=== PATIENT | female | born 1965 | race Caucasian/White ===

== ENCOUNTER 2016-04-07 07:25 | Emergency (ER) | payer OTHER ==
[2016-04-07] MEDS ORDERED: KETOROLAC 60 MG/2 ML VIAL IM STA (07:45)
[2016-04-07] MEDS ORDERED: DEXAMETHASONE 10 MG/ML VIAL PO STA (07:46)
[2016-04-07] MEDS ORDERED: KETOROLAC 60 MG/2 ML VIAL ONE (07:51)
[2016-04-07] MEDS ORDERED: CHERRY SYRUP 10 ML UDC PO ONE (07:51)
[2016-04-07] MEDS ORDERED: DEXAMETHASONE 10 MG/ML VIAL ONE (07:51)
[2016-04-07] MEDS ORDERED: PROMETHAZINE 25 MG/1 ML VIAL IM STA (08:20)
[2016-04-07] MEDS ORDERED: PROMETHAZINE 25 MG/1 ML VIAL ONE (08:22)
[2016-04-07] MEDS ORDERED: ONDANSETRON 4 MG/2 ML VIAL IVP STA (08:59)
[2016-04-07] MEDS ORDERED: SODIUM CHLORIDE 0.9% 1,000 ML IV ONE (08:59)
[2016-04-07] MEDS ORDERED: ONDANSETRON 4 MG/2 ML VIAL ONE (09:01)
[2016-04-07] MEDS ORDERED: HYDROmorphone 1 MG/ML SYRINGE IVP STA (09:44)
[2016-04-07] MEDS ORDERED: HYDROmorphone 1 MG/ML SYRINGE ONE (09:48)
== END 2016-04-07 10:29 | disposition home or self-care (01) ==
DX: S39.012A Strain of muscle, fascia and tendon of lower back, initial encounter (principal); X58.XXXA Exposure to other specified factors, initial encounter; M54.5 Low back pain; G89.29 Other chronic pain; R11.0 Nausea; R39.15 Urgency of urination
CPT/HCPCS: 81003; 96372; 96374; 96375; 99284; A9270

== ENCOUNTER 2016-08-26 10:49 | Emergency (ER) | payer OTHER ==
--- NOTE | 2016-08-26 12:51 | ED Physician Documentation ---
History of Present Illness - Stated complaint Stated Complaint: SWEATS/CHILLS/ZAYAS - Chief complaint Chief Complaint: General - History obtained from History obtained from: Patient, Family () - History of Present Illness Pain level max: 8 Pain level now: 8 Improved by: claritin Worsened by: nothing - Additonal information Additional information: Patient complains of rash to neck and upper chest for 3 days. +rhinorrhea. + cough. No fever, but has felt chilled. States felt mild dyspneic today. Took albuterol without relief. Has now developed her typical migraine headache as well. Took claritin and helped the rash and dyspnea. Still has a headache. Review of Systems Constitutional: denies: Fever Nose: reports: Rhinorrhea / runny nose, Congestion Cardiac: denies: Chest pain / pressure Respiratory: reports: Dyspnea (mild), Cough (dry) GI: denies: Abdominal Pain, Nausea, Vomiting, Diarrhea Skin: denies: Rash Musculoskeletal: denies: Neck pain, Back pain Neurologic: reports: Headache. 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, Oophrectomy HEENT: Tonsil/Adenoidectomy - Present Medications Home Medications: Ambulatory Orders Medication Instructions Recorded Confirmed Methocarbamol 1,000 mg PO DAILY 04/07/16 08/26/16 Lansoprazole [Prevacid] 20 mg PO BID 08/26/16 08/26/16 Loratadine [Claritin] 10 mg PO DAILY 08/26/16 08/26/16 Prednisone 20 mg PO DAILY #5 tablet 08/26/16 - Allergies Allergies/Adverse Reactions: Allergies Allergy/AdvReac Type Severity Reaction Status Date / Time cephalexin monohydrate * AdvReac Unknown Verified 04/07/16 07:34 [From Keflex] morphine AdvReac Unknown Verified 04/07/16 07:34 NSAIDS (Non-Steroidal AdvReac Unknown Verified 04/07/16 07:34 Anti-Inflamma - Social History Does the pt smoke?: No Smoking Status: Never smoker Does the pt drink ETOH?: Yes Does the pt have substance abuse?: Yes - Immunizations Immunizations are current?: Yes PD ED PE NORMAL - Vitals Vital signs reviewed: Yes - General General: Alert and oriented X 3, No acute distress, Well developed/nourished - HEENT HEENT: PERRL, Ears normal, Moist mucous membranes, Pharynx benign - Neck Neck: Supple, no meningeal sign - Cardiac Cardiac: RRR, Strong equal pulses - Respiratory Respiratory: No respiratory distress, Clear bilaterally - Abdomen Abdomen: Soft, Non tender, Non distended - Derm Derm: Warm and dry, No rash - Extremities Extremities: No edema - Neuro Neuro: Alert and oriented X 3 - Psych Psych: Normal mood, Normal affect Results - Vitals Vitals: Vital Signs - 24 hr 08/26/16 08/26/16 08/26/16 10:51 12:46 14:09 Temperature 36.4 C L Heart Rate 99 78 65 Respiratory 18 16 16 Rate Blood Pressure 153/97 H 131/73 H 123/58 L O2 Saturation 99 98 99 08/26/16 15:06 Temperature Heart Rate 69 Respiratory 16 Rate Blood Pressure 107/53 L O2 Saturation 99 Oxygen O2 Source Room air PD MEDICAL DECISION MAKING - ED course Complexity details: reviewed results, re-evaluated patient, considered differential, d/w patient, d/w family ED course: Patient is a 51-year-old female who presents to the emergency department with what appears to be a viral upper respiratory infection as well as her typical migraine headache. She had nausea and vomiting following the toradol. This resolved with Zofran. Also received Phenergan and Benadryl. Then received Imitrex. Headache improved down to a 4 out of 10 and she would like to go home at this time. Her rash resolved as well. She does have mild inflammation in her lungs and will prescribe a short steroid course for home. Patient is very well-appearing, nontoxic. Afebrile. No evidence of intracranial hemorrhage, subarachnoid hemorrhage. Patient counseled regarding signs and symptoms for which I believe and urgent re-evaluation would be necessary. Patient with good understanding of and agreement to plan and is comfortable going home at this time This document was made in part using voice recognition software. While efforts are made to proofread this document, sound alike and grammatical errors may occur. Departure - Departure Disposition: 01 Home, Self Care Clinical Impression: Viral URI Headache Qualifiers: Headache type: unspecified Headache chronicity pattern: unspecified pattern Intractability: not intractable Qualified Code(s): R51 - Headache Condition: Good Instructions: ED Viral Syndrome, ED Headache Migraine Follow-Up: Ad Ford DO [Primary Care Provider] - Within 1 week Prescriptions: Prednisone 20 mg PO DAILY #5 tablet Comments: Return if you worsen. The steroids will help your breathing, rash and headache. Discharge Date/Time: 08/26/16 15:33
[2016-08-26] MEDS ORDERED: KETOROLAC 60 MG/2 ML VIAL IM STA (12:53)
[2016-08-26] MEDS ORDERED: PROMETHAZINE 25 MG/1 ML VIAL IM STA (12:53)
[2016-08-26] MEDS ORDERED: diphenhydrAMINE INJ 50 MG/ML VIAL IM STA (12:53)
[2016-08-26] MEDS ORDERED: KETOROLAC 60 MG/2 ML VIAL ONE (12:56)
[2016-08-26] MEDS ORDERED: diphenhydrAMINE INJ 50 MG/ML VIAL ONE (12:56)
[2016-08-26] MEDS ORDERED: PROMETHAZINE 25 MG/1 ML VIAL ONE (12:56)
[2016-08-26] MEDS ORDERED: ONDANSETRON ODT 4 MG TABLET TL STA (13:54)
[2016-08-26] MEDS ORDERED: ONDANSETRON ODT 4 MG TABLET ONE (13:56)
[2016-08-26] MEDS ORDERED: SUMAtriptan 6 MG/0.5 ML VIAL SUBQ STA (14:14)
[2016-08-26] MEDS ORDERED: SUMAtriptan 6 MG/0.5 ML VIAL SUBQ ONE (14:16)
[2016-08-26 15:06] VITALS: BP 107/53
== END 2016-08-26 15:33 | disposition home or self-care (01) ==
LOC: ED 10:49
DX: J06.9 Acute upper respiratory infection, unspecified (principal); B97.89 Other viral agents as the cause of diseases classified elsewhere; J45.909 Unspecified asthma, uncomplicated; K21.9 Gastro-esophageal reflux disease without esophagitis
CPT/HCPCS: 96372; 99283; 99284; Q0162

== ENCOUNTER 2017-02-19 09:10 | Outpatient (CLI) | payer OTHER ==
--- NOTE | 2017-02-20 22:25 | MRI Report ---
EXAM: RIGHT KNEE MRI WITHOUT CONTRAST EXAM DATE: 02/19/2017 09:58 AM. CLINICAL HISTORY: Pain in right knee. COMPARISON: None. TECHNIQUE: Multiplanar, multisequence T1-weighted and fluid-sensitive sequences of the knee without c ontrast. Other: None. FINDINGS: Cruciate ligaments: The anterior and posterior cruciate ligaments appear intact. Medial meniscus: Intact. No tear is identified. Lateral meniscus: Intact. No tear is identified. Collateral ligaments: The medial and fibular collateral ligaments appear intact. Trace fluid within t he MCL bursa. Bones and articular surfaces: Prominent near full-thickness cartilage fissure or linear defect at the lateral tibial plateau measuring approximately 0.3 x 1.5 cm. Moderate to severe cartilage thinning, fissuring and irregularity in the patellofemoral compartment with patchy foci of subchondral edema an d subchondral cyst formation throughout the patella and at the medial trochlea. Minimal joint effusio n. Extensor mechanism: The patellar tendon and quadriceps insertion appear intact. IMPRESSION: 1. Moderate patellofemoral osteoarthritis. 2. Near full-thickness cartilage fissure or linear defect at the lateral tibial plateau measuring 3 x 15 mm. [facility] MUSCULOSKELETAL RADIOLOGY SECTION Referring Provider Line: [phone] SITE ID: [id number]
== END 2017-02-19 09:11 | disposition home or self-care (01) ==
LOC: DI 09:10
DX: M17.11 Unilateral primary osteoarthritis, right knee (principal); M23.91 Unspecified internal derangement of right knee

== ENCOUNTER 2018-06-26 21:51 | Emergency (ER) | payer OTHER ==
--- NOTE | 2018-06-26 22:42 | XRAY Report ---
Reason: chest pain Procedure Date: 06/26/2018 Accession Number: [id number] / [id number] Procedure: XR - Chest 2 View X-Ray CPT Code: 53969 FULL RESULT: EXAM: CHEST RADIOGRAPHY EXAM DATE: 06/26/2018 10:13 PM. CLINICAL HISTORY: Chest pain. COMPARISON: None. TECHNIQUE: 2 views. FINDINGS: Lungs/Pleura: No focal opacities evident. No pleural effusion. No pneumothorax. Normal volumes. Mediastinum: Heart and mediastinal contours are unremarkable. Other: None. IMPRESSION: Normal 2-view chest radiography. [facility]
[2018-06-26 23:04] LABS: BILIRUBIN,URINE NEGATIVE (NEGATIVE); GLUCOSE, URINE (UA) NEGATIVE (NEGATIVE); KETONES,URINE (UA) NEGATIVE (NEGATIVE); LEUKOCYTE ESTERASE, URINE TRACE (NEGATIVE); NITRITE,URINE NEGATIVE (NEGATIVE); OCCULT BLOOD,URINE TRACE-INTA (NEGATIVE); PROTEIN,URINE NEGATIVE (NEGATIVE); UROBILINOGEN,URINE 0.2 (NORMAL) E.U./dL (NORMAL)
[2018-06-26 23:05] LABS: CLARITY,URINE CLEAR (CLEAR)
[2018-06-26] MEDS ORDERED: ONDANSETRON ODT 4 MG TABLET TL STA (23:07)
[2018-06-26] MEDS ORDERED: HYDROmorphone 1 MG/ML CARPUJECT IM STA (23:07)
[2018-06-26 23:12] LABS: BACTERIA,URINE None Seen /HPF (None Seen); RBC,URINE 0-5 /HPF (0-5); SQUAMOUS EPITHELIAL CELL,UR MOD Squamous (<= Few)
--- NOTE | 2018-06-26 23:12 | ED Physician Documentation ---
History of Present Illness - Stated complaint Stated Complaint: RAPID HEART RATE/BACK PX - Chief complaint Chief Complaint: Cardiac - History obtained from History obtained from: Patient, Family - History of Present Illness Timing: Other (1 month) Pain level max: 8 Pain level now: 8 Improved by: rest Worsened by: movement - Additonal information Additional information: Patient is a 52-year-old female who has been seen by her doctor 4 times and [facility] x1 in the past month for similar symptoms. She states that she occasionally gets chills and feels her heart race. States that her heart rate was elevated into the 130s at 1 of her doctor's appointments and they started her on metoprolol. She occasionally feels feverish. No nausea or vomiting. Does occasionally have epigastric pain. Tonight she also developed right scapular pain that is worse with movement and better with rest. Denies any trauma. Denies any heavy lifting. No chest pain. No shortness of breath. Review of Systems Ten Systems: 10 systems reviewed and negative Eyes: denies: Photophobia Ears: denies: Ear pain Nose: denies: Rhinorrhea / runny nose, Congestion Cardiac: reports: Palpitations. 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 HEENT: Tonsil/Adenoidectomy - Present Medications Home Medications: Ambulatory Orders Medication Instructions Recorded Confirmed Methocarbamol 1,000 mg PO DAILY 04/07/16 08/26/16 Lansoprazole [Prevacid] 20 mg PO BID 08/26/16 08/26/16 Loratadine [Claritin] 10 mg PO DAILY 08/26/16 08/26/16 predniSONE [Prednisone] 20 mg PO DAILY #5 tablet 08/26/16 diazePAM [Valium] 5 - 10 mg PO TID PRN #15 tablet 06/27/18 - Allergies Allergies/Adverse Reactions: Allergies Allergy/AdvReac Type Severity Reaction Status Date / Time cephalexin monohydrate * AdvReac Unknown Verified 06/26/18 21:56 [From Keflex] morphine AdvReac Unknown Verified 06/26/18 21:56 NSAIDS (Non-Steroidal AdvReac Unknown Verified 06/26/18 21:56 Anti-Inflamma - Social History Does the pt smoke?: No Smoking Status: Never smoker Does the pt drink ETOH?: Yes Does the pt have substance abuse?: Yes - Immunizations Immunizations are current?: Yes PD ED PE NORMAL - Vitals Vital signs reviewed: Yes - General General: Alert and oriented X 3, No acute distress, Well developed/nourished - HEENT HEENT: PERRL, Ears normal, Moist mucous membranes, Pharynx benign - Neck Neck: Supple, no meningeal sign, No bruit - Cardiac Cardiac: RRR, No murmur, Strong equal pulses - Respiratory Respiratory: No respiratory distress, Clear bilaterally - Abdomen Abdomen: Soft, Non tender, Non distended - Derm Derm: Warm and dry, No rash - Extremities Extremities: No edema, No calf tenderness / cord - Neuro Neuro: Alert and oriented X 3, bioprocess engineer 2-12 intact, No motor deficit, No sensory deficit, Normal speech Eye Opening: Spontaneous Motor: Obeys Commands Verbal: Oriented GCS Score: 15 - Psych Psych: Normal mood, Normal affect Results - Vitals Vitals: Vital Signs - 24 hr 06/26/18 06/26/18 06/27/18 21:52 23:30 00:03 Temperature 36.5 C 36.6 C 36.7 C Heart Rate 83 96 88 Respiratory 18 17 16 Rate Blood Pressure 145/94 H 155/93 H 126/87 H O2 Saturation 100 99 95 06/27/18 06/27/18 06/27/18 00:25 01:30 02:03 Temperature 36.5 C Heart Rate 93 83 80 Respiratory 17 17 16 Rate Blood Pressure 137/72 H 115/50 L 121/68 O2 Saturation 97 98 Oxygen O2 Source Room air - EKG (time done) 2158 Rate: Rate (enter#) (70) Rhythm: NSR [place]: Normal Intervals: Normal [place] QRS: Normal Ischemia: Normal ST segments - Labs Labs: Laboratory Tests 06/26/18 06/26/18 06/26/18 22:19 23:35 23:35 WBC 12.3 H RBC 4.44 Hgb 13.3 Hct 40.3 MCV 90.9 MCH 29.9 MCHC 32.9 RDW 14.0 Plt Count 306 MPV 8.8 Neut # (Auto) 7.9 H Lymph # (Auto) 3.2 [place] # (Auto) 1.0 Eos # (Auto) 0.2 Baso # (Auto) 0.1 Absolute Nucleated RBC 0.01 Nucleated RBC % 0.1 D-Dimer Sodium 141 Potassium 4.0 Chloride 105 Carbon Dioxide 25 Anion Gap 11.0 BUN 14 Creatinine 0.7 Estimated GFR (MDRD) 88 L Glucose 111 H Calcium 9.4 Total Bilirubin 0.6 AST 23 ALT 30 Alkaline Phosphatase 89 Troponin I Total Protein 7.2 Albumin 4.3 Globulin 2.9 Albumin/Globulin Ratio 1.5 Lipase 44 Urine Color YELLOW Urine Clarity CLEAR Urine pH 6.0 Ur Specific [place] <=1.005 Urine Protein NEGATIVE Urine Glucose (UA) NEGATIVE Urine Ketones NEGATIVE Urine Occult Blood TRACE-INTA Urine Nitrite NEGATIVE Urine Bilirubin NEGATIVE Urine Urobilinogen 0.2 (NORMAL) Ur Leukocyte Esterase TRACE H Urine RBC 0-5 Urine WBC 0-3 Ur Squamous Epith Cells MOD Squamous H Urine Bacteria None Seen Ur Microscopic Review INDICATED Urine Culture Comments NOT INDICATED 06/26/18 06/26/18 23:35 23:35 WBC RBC Hgb Hct MCV MCH MCHC RDW Plt Count MPV Neut # (Auto) Lymph # (Auto) [place] # (Auto) Eos # (Auto) Baso # (Auto) Absolute Nucleated RBC Nucleated RBC % D-Dimer 190.8 L Sodium Potassium Chloride Carbon Dioxide Anion Gap BUN Creatinine Estimated GFR (MDRD) Glucose Calcium Total Bilirubin AST ALT Alkaline Phosphatase Troponin I < 0.04 Total Protein Albumin Globulin Albumin/Globulin Ratio Lipase Urine Color Urine Clarity Urine pH Ur Specific [place] Urine Protein Urine Glucose (UA) Urine Ketones Urine Occult Blood Urine Nitrite Urine Bilirubin Urine Urobilinogen Ur Leukocyte Esterase Urine RBC Urine WBC Ur Squamous Epith Cells Urine Bacteria Ur Microscopic Review Urine Culture Comments - Rads (name of study) cxr Radiology: Prelim report reviewed, EMP read contemporaneously, See rad report (No acute disease) PD MEDICAL DECISION MAKING - ED course Complexity details: reviewed results, re-evaluated patient, considered differential (No ST elevation OK, no aortic dissection, no PE, no tension pneumothorax, no aortic aneurysm), d/w patient ED course: 52-year-old female presents to the emergency department with multiple symptoms is been ongoing for the past month, tonight she developed right scapular pain. No right upper quadrant tenderness. Worse with movement and palpation. Feels better after valium. Will treat as muscular pain and follow-up with her doctor. No evidence of pulmonary embolus, aortic dissection or aneurysm. Patient counseled regarding signs and symptoms for which I believe and urgent re- evaluation would be necessary. Patient with good understanding of and agreement to plan and is comfortable going home at this time This document was made in part using voice recognition software. While efforts are made to proofread this document, sound alike and grammatical errors may occur. Departure - Departure Disposition: 01 Home, Self Care Clinical Impression: Back pain Qualifiers: Back pain location: thoracic back pain Chronicity: acute Back pain laterality: right Qualified Code(s): M54.6 - Pain in thoracic spine Condition: Good Instructions: ED Neck Back Pain General Follow-Up: Lindsay Orozco MD [Primary Care Provider] - Within 3 Days Prescriptions: diazePAM [Valium] 5 - 10 mg PO TID PRN #15 tablet PRN Reason: Spasms Comments: The cause of your symptoms is unclear tonight but does not appear to be related to a pulmonary embolism, heart attack or aortic problem. You can use the Valium as needed for pain. Do not drive or operate heavy machinery while taking the Valium. Follow-up with your doctor for the results of your outpatient blood test Discharge Date/Time: 06/27/18 02:04
[2018-06-26 23:54] LABS: ALBUMIN 4.3 g/dL (3.2-5.5); ALBUMIN/GLOBULIN RATIO 1.5 (1.0-2.2); BILIRUBIN,TOTAL 0.6 mg/dL (0.2-1.0); CALCIUM 9.4 mg/dL (8.5-10.3); CREATININE 0.7 mg/dL (0.4-1.0); TOTAL PROTEIN 7.2 g/dL (6.7-8.2)
[2018-06-27 00:03] LABS: BASOPHILS # (AUTO) 0.1 10^3/uL (0.0-0.1); BASOPHILS % (AUTO) 0.6 %; EOSINOPHILS # (AUTO) 0.2 10^3/uL (0.0-0.7); EOSINOPHILS % (AUTO) 1.9 %; HGB - HEMOGLOBIN 13.3 g/dL (12.0-16.0); LYMPHOCYTES # (AUTO) 3.2 10^3/uL (1.5-3.5); LYMPHOCYTES % (AUTO) 25.6 %; MEAN CORPUSCULAR HEMOGLOBIN 29.9 pg (27.0-31.0); MEAN CORPUSCULAR HGB CONC 32.9 g/dL (32.0-36.0); MEAN CORPUSCULAR VOLUME 90.9 fL (81.0-99.0); MEAN PLATELET VOLUME 8.8 fL (7.9-10.8); MONOCYTES % (AUTO) 8.2 %; NEUTROPHILS # (AUTO) 7.9 10^3/uL (1.5-6.6); NEUTROPHILS % (AUTO) 63.7 %; PLT - PLATELET COUNT 306 10^3/uL (130-450); RED BLOOD COUNT 4.44 10^6/uL (4.20-5.40); WHITE BLOOD COUNT 12.3 x10^3/uL (4.8-10.8)
[2018-06-27] MEDS ORDERED: LIDOCAINE VISCOUS 2% 15 ML UDC MM STA (00:29)
[2018-06-27] MEDS ORDERED: SUCRALFATE 1 GM/10 ML UDC PO STA (00:29)
[2018-06-27] MEDS ORDERED: MAG HYDROX/AL HYDROX/SIMETH 30 ML UDC PO STA (00:29)
[2018-06-27] MEDS ORDERED: FAMOTIDINE 20 MG TABLET PO STA (00:29)
[2018-06-27] MEDS ORDERED: diazePAM 5 MG TABLET PO STA (01:03)
[2018-06-27 02:04] VITALS: BP 121/68
== END 2018-06-27 02:04 | disposition home or self-care (01) ==
LOC: ED 21:51
DX: M54.6 Pain in thoracic spine (principal); G89.29 Other chronic pain; M25.511 Pain in right shoulder
CPT/HCPCS: 36415; 71046; 80053; 81001; 83690; 84484; 85025; 85379; 93005; 96372; 99283; 99284; A9270; J1170; Q0162; 81003; 87086

== ENCOUNTER 2018-07-15 16:09 | Emergency (ER) | payer OTHER ==
[2018-07-15] MEDS ORDERED: SODIUM CHLORIDE 0.9% 1,000 ML IV ONE (18:13)
[2018-07-15] MEDS ORDERED: HYDROmorphone 1 MG/ML CARPUJECT IVP STA ×2 (18:13→19:26)
[2018-07-15] MEDS ORDERED: ONDANSETRON 4 MG/2 ML VIAL IVP STA (18:13)
--- NOTE | 2018-07-15 18:19 | ED Physician Documentation ---
PD HPI ABD PAIN - Stated complaint Stated Complaint: UPPER BACK PAIN - Chief complaint Chief Complaint: Back Pain - History obtained from History obtained from: Patient - History of Present Illness Timing - onset: Other (This is a 52-year-old woman with now chronic abdominal pain. She has had multiple workups including upper and lower endoscopy. CT scan but not for a year. She seen GI. It sounds like she may have IBS. Dicyclomine was stopped. She alternates between constipation and diarrhea. The abdominal pain is upper and diffuse and now more recently has bilateral flank pain. She has chills but no fevers. She has a chronically elevated heart rate. For that she saw production potter without definitive diagnosis.) Review of Systems Ten Systems: 10 systems reviewed and negative Constitutional: reports: Chills. denies: Fever, Weight Loss Nose: denies: Rhinorrhea / runny nose Throat: denies: Sore throat Cardiac: denies: Chest pain / pressure, Palpitations PD PAST MEDICAL HISTORY - Past Medical History Past Medical History: Yes Cardiovascular: None Respiratory: Asthma Neuro: None Endocrine/Autoimmune: None GI: GERD, C.difficile, Chronic diarrhea, Chronic constipation, Other PEDIATRIC LPN: None : None HEENT: None Psych: None Musculoskeletal: Chronic back pain Derm: None Other Past Medical History: diverticulosis, ibs, - Past Surgical History Past Surgical History: Yes General: Cholecystectomy, Colonoscopy, 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 Acidophilus/L. Rhamnosus 1 each PO 07/15/18 [Probiotic 15 Billion Cell Cap] Ondansetron Odt [Zofran] 4 mg TL Q6H PRN 07/15/18 07/15/18 Ondansetron Odt [Zofran] 4 mg TL Q6H PRN #10 tablet 07/15/18 Pantoprazole [Protonix] 40 mg PO 07/15/18 Polyethylene Glycol 3350 [Miralax] 119 gm PO 07/15/18 - Allergies Allergies/Adverse Reactions: Allergies Allergy/AdvReac Type Severity Reaction Status Date / Time cephalexin monohydrate * AdvReac Unknown Verified 06/26/18 21:56 [From Keflex] morphine AdvReac Unknown Verified 06/26/18 21:56 NSAIDS (Non-Steroidal AdvReac Unknown Verified 07/15/18 16:16 Anti-Inflamma - Social History Does the pt smoke?: No Smoking Status: Never smoker Does the pt drink ETOH?: Yes Does the pt have substance abuse?: No - Immunizations Immunizations are current?: Yes - POLST Patient has POLST: No PD ED PE NORMAL - Vitals Vital signs reviewed: Yes - General General: Alert and oriented X 3, No acute distress - HEENT HEENT: PERRL, EOMI - Neck Neck: Supple, no meningeal sign, No bony TTP - Cardiac Cardiac: RRR, No murmur - Respiratory Respiratory: No respiratory distress, Clear bilaterally - Abdomen Abdomen: Other (Hyperactive bowel tones, soft with mild diffuse tenderness in bilateral flank tenderness, left greater than right.) - Derm Derm: Normal color, Warm and dry - Extremities Extremities: No edema, No calf tenderness / cord - Neuro Neuro: Alert and oriented X 3, Normal speech Results - Vitals Vitals: Vital Signs - 24 hr 07/15/18 07/15/18 07/15/18 16:13 19:48 20:15 Temperature 37.4 C 36.7 C Heart Rate 122 H 103 H 104 H Respiratory 22 16 16 Rate Blood Pressure 137/80 H 145/83 H 135/81 H O2 Saturation 100 97 94 Oxygen O2 Source Room air - Labs Labs: Laboratory Tests 07/15/18 07/15/18 07/15/18 18:43 18:43 19:16 WBC 10.0 RBC 4.50 Hgb 13.3 Hct 40.7 MCV 90.5 MCH 29.6 MCHC 32.7 RDW 14.3 Plt Count 318 MPV 8.7 Neut # (Auto) 6.6 Lymph # (Auto) 2.6 [place] # (Auto) 0.6 Eos # (Auto) 0.1 Baso # (Auto) 0.0 Absolute Nucleated RBC 0.00 Nucleated RBC % 0.0 Sodium 141 Potassium 3.7 Chloride 104 Carbon Dioxide 24 Anion Gap 13.0 BUN 10 Creatinine 0.7 Estimated GFR (MDRD) 88 L Glucose 97 Calcium 9.6 Total Bilirubin 0.4 AST 31 ALT 40 Alkaline Phosphatase 76 Total Protein 7.4 Albumin 4.3 Globulin 3.1 Albumin/Globulin Ratio 1.4 Lipase 34 Urine Color YELLOW Urine Clarity SL. CLOUDY Urine pH 6.0 Ur Specific [place] 1.015 Urine Protein NEGATIVE Urine Glucose (UA) NEGATIVE Urine Ketones 15 H Urine Occult Blood NEGATIVE Urine Nitrite NEGATIVE Urine Bilirubin NEGATIVE Urine Urobilinogen 0.2 (NORMAL) Ur Leukocyte Esterase TRACE H Urine RBC None Seen Urine WBC 0-3 Ur Squamous Epith Cells MANY Squamous H Urine Bacteria Few Urine Mucus Few Strands Ur Microscopic Review INDICATED Urine Culture Comments NOT INDICATED - Rads (name of study) CT A/P Radiology: EMP read contemporaneously (negative) PD MEDICAL DECISION MAKING - ED course ED course: This is a 52-year-old woman with an acute exacerbation of chronic unexplained abdominal pain with thorough negative workups in the past. It has been a while since her last CT so this was performed. No pertinent positive findings. She is feeling better after meds here. We clarified that her dicyclomine was stopped by her qc tech because he did not want her on it long-term. Departure - Departure Disposition: 01 Home, Self Care Clinical Impression: Chronic abdominal pain Condition: Good Record reviewed to determine appropriate education?: Yes Instructions: ED Abdominal Pain Unkn Cause, ED IBS Prescriptions: Hydrocodone/Acetaminophen [Hydrocodon-Acetaminophen 5-325] 1 - 2 each PO Q6H PRN #14 tablet PRN Reason: pain Ondansetron Odt [Zofran] 4 mg TL Q6H PRN #10 tablet PRN Reason: Nausea / Vomiting Comments: As discussed, your CT scan labs tonight are normal. There is no clear cause for your pain but the pattern to me seems most consistent with irritable bowel syndrome. Return anytime for new or worsening symptoms, but please follow-up with your primary care physician and your qc tech for further evaluation and treatment.
[2018-07-15] MEDS ORDERED: IOVERSOL 320 100 ML VIAL IVP ONE ×2 (18:28→19:43)
[2018-07-15 19:01] LABS: BASOPHILS % (AUTO) 0.4 %; EOSINOPHILS # (AUTO) 0.1 10^3/uL (0.0-0.7); EOSINOPHILS % (AUTO) 1.1 %; HGB - HEMOGLOBIN 13.3 g/dL (12.0-16.0); LYMPHOCYTES # (AUTO) 2.6 10^3/uL (1.5-3.5); MEAN CORPUSCULAR HEMOGLOBIN 29.6 pg (27.0-31.0); MEAN CORPUSCULAR HGB CONC 32.7 g/dL (32.0-36.0); MEAN CORPUSCULAR VOLUME 90.5 fL (81.0-99.0); MEAN PLATELET VOLUME 8.7 fL (7.9-10.8); MONOCYTES # (AUTO) 0.6 10^3/uL (0.0-1.0); MONOCYTES % (AUTO) 6.5 %; NEUTROPHILS # (AUTO) 6.6 10^3/uL (1.5-6.6); PLT - PLATELET COUNT 318 10^3/uL (130-450); RED CELL DISTRIBUTION WIDTH 14.3 % (12.0-15.0)
[2018-07-15 19:13] LABS: ALBUMIN 4.3 g/dL (3.2-5.5); ALBUMIN/GLOBULIN RATIO 1.4 (1.0-2.2); BILIRUBIN,TOTAL 0.4 mg/dL (0.2-1.0); CALCIUM 9.6 mg/dL (8.5-10.3); CREATININE 0.7 mg/dL (0.4-1.0); TOTAL PROTEIN 7.4 g/dL (6.7-8.2)
[2018-07-15 19:27] LABS: BILIRUBIN,URINE NEGATIVE (NEGATIVE); GLUCOSE, URINE (UA) NEGATIVE (NEGATIVE); KETONES,URINE (UA) 15 mg/dL (NEGATIVE); LEUKOCYTE ESTERASE, URINE TRACE (NEGATIVE); NITRITE,URINE NEGATIVE (NEGATIVE); OCCULT BLOOD,URINE NEGATIVE (NEGATIVE); PROTEIN,URINE NEGATIVE (NEGATIVE); UROBILINOGEN,URINE 0.2 (NORMAL) E.U./dL (NORMAL)
[2018-07-15 19:37] LABS: CLARITY,URINE SL. CLOUDY (CLEAR)
[2018-07-15 19:42] LABS: BACTERIA,URINE Few /HPF (None Seen); RBC,URINE None Seen /HPF (0-5); SQUAMOUS EPITHELIAL CELL,UR MANY Squamous (<= Few)
[2018-07-15 19:43] LABS: MUCUS,URINE Few Strands
--- NOTE | 2018-07-15 20:12 | CT Report ---
Reason: IV only, abd pain Procedure Date: 07/15/2018 Accession Number: [id number] / [id number] Procedure: CT - Abdomen/Pelvis W CPT Code: FULL RESULT: EXAM: CT ABDOMEN AND PELVIS EXAM DATE: 07/15/2018 07:44 PM. CLINICAL HISTORY: Abdominal pain COMPARISONS: None. TECHNIQUE: Routine helical CT imaging was performed through the abdomen and pelvis. IV contrast: OPTIRAY 320 100ML. Enteric contrast: No. Reconstructions: Coronal and sagittal. In accordance with CT protocol optimization, one or more of the following dose reduction techniques were utilized for this exam: automated exposure control, adjustment of mA and/or KV based on patient size, or use of iterative reconstructive technique. FINDINGS: Lung Bases: Unremarkable. Liver: There is mild hepatic steatosis. No focal hepatic lesions are seen. Gallbladder/Bile Ducts: The gallbladder is surgically absent. There is no significant bile duct dilatation. Spleen: Normal. Pancreas: Normal. Adrenal Glands: Normal. Kidneys: Normal. No masses or hydronephrosis. Peritoneal Cavity/Bowel: Normal. No free fluid, free air or adenopathy. No masses or acute inflammatory process. The appendix is well visualized and normal. Pelvic Organs: Normal. The bladder and visualized pelvic organs are within normal limits. Vasculature: No aneurysms or other significant abnormality. Bones: There is grade 1 anterolisthesis of L4 on L5. Other: None. IMPRESSION: Negative contrast enhanced CT of the abdomen and pelvis. No acute solid or hollow viscus organ abnormalities to account for the patient's abdominal pain. There is no evidence of appendicitis or bowel obstruction. [facility]
[2018-07-15 20:33] VITALS: BP 115/64
== END 2018-07-15 20:45 | disposition home or self-care (01) ==
LOC: ED 16:09
DX: R10.9 Unspecified abdominal pain (principal); G89.29 Other chronic pain
CPT/HCPCS: 36415; 74177; 80053; 81001; 83690; 85025; 96361; 96374; 96375; 96376; 99283; 99284; J1170; Q9967; 81003; 87086

== ENCOUNTER 2018-07-23 13:42 | Emergency (ER) | payer OTHER ==
--- NOTE | 2018-07-23 14:25 | ED Physician Documentation ---
PD HPI ABD PAIN - Stated complaint Stated Complaint: Abd pain - Chief complaint Chief Complaint: Abd Pain - History obtained from History obtained from: Patient - History of Present Illness Timing - onset: Chronic (52-year-old woman with chronic abdominal pain. Is been going on for a year. She has had a GI work-up, CTs, and also saw canal tender because of heart racing without specific diagnoses. See my note from last week. More recently the pain has moved from central to suprapubic and associated with foul-smelling urine. [place] She feels swollen in her genitals. She has a history of remote hysterectomy without oophorectomy and laparoscopic cholecystectomy. I put her on Vicodin last week which made her vomit but Percocet is been more helpful. The pain moved down to the suprapubic area about 3 to 4 days ago. She is clearly frustrated by the whole process and lack of a specific diagnosis.) Review of Systems Ten Systems: 10 systems reviewed and negative Constitutional: denies: Fever, Chills Throat: denies: Dental pain / toothache, Sore throat Cardiac: denies: Chest pain / pressure, Palpitations Respiratory: denies: Dyspnea, Cough GI: reports: Abdominal Pain : denies: Dysuria, Frequency Skin: denies: Rash, Lesions Musculoskeletal: denies: Neck pain, Back pain PD PAST MEDICAL HISTORY - Past Medical History Cardiovascular: None Respiratory: Asthma Neuro: None Endocrine/Autoimmune: None GI: GERD, C.difficile, Chronic diarrhea, Chronic constipation, Other PAROLE OR PROBATION OFFICER: None : None HEENT: None Psych: None Musculoskeletal: Chronic back pain Derm: None - Past Surgical History Past Surgical History: Yes General: Cholecystectomy, Colonoscopy, EGD /PAROLE OR PROBATION OFFICER: Hysterectomy, Oophrectomy HEENT: Tonsil/Adenoidectomy - Present Medications Home Medications: Ambulatory Orders Medication Instructions Recorded Confirmed Butalb/Acetaminophen/Caffeine 1 each PO PRN PRN 07/15/18 07/23/18 [Fioricet 50-300-40 mg Capsule] Cholecalciferol (Vitamin D3) 1,000 unit PO DAILY 07/15/18 07/23/18 [Vitamin D3] L. Acidophilus/L. Rhamnosus 1 each PO DAILY 07/15/18 07/23/18 [Probiotic 15 Billion Cell Cap] Ondansetron Odt [Zofran] 4 mg TL Q6H PRN #10 tablet 07/15/18 07/23/18 Pantoprazole [Protonix] 40 mg PO DAILY 07/15/18 07/23/18 Polyethylene Glycol 3350 [Miralax] 119 gm PO DAILY 07/15/18 Amitriptyline [Elavil] 10 mg PO HS #30 tablet 07/23/18 oxyCODONE [Roxicodone] 5 mg PO Q4-6H 07/23/18 07/23/18 - Allergies Allergies/Adverse Reactions: Allergies Allergy/AdvReac Type Severity Reaction Status Date / Time cephalexin monohydrate * AdvReac Unknown Verified 07/23/18 14:03 [From Keflex] morphine AdvReac Unknown Verified 07/23/18 14:03 NSAIDS (Non-Steroidal AdvReac Unknown Verified 07/23/18 14:03 Anti-Inflamma - Social History Does the pt smoke?: No Smoking Status: Never smoker Does the pt drink ETOH?: Yes Does the pt have substance abuse?: No - Immunizations Immunizations are current?: Yes - POLST Patient has POLST: No PD ED PE NORMAL - Vitals Vital signs reviewed: Yes - General General: Alert and oriented X 3, No acute distress - Abdomen Abdomen: Other (Mild bilateral lower quadrant tenderness without surgical signs.) - Female Female : Hose Builder present (Debby CANTOR), Other (No significant tenderness. She has mild bilateral adnexal tenderness with creamy white discharge.) - Back Back: No CVA TTP, No spinal TTP - Derm Derm: Normal color, Warm and dry - Extremities Extremities: No edema, No calf tenderness / cord - Neuro Neuro: Alert and oriented X 3, Normal speech Results - Vitals Vitals: Vital Signs - 24 hr 07/23/18 07/23/18 07/23/18 13:59 14:48 17:17 Temperature 36.4 C L 37.1 C 36.8 C Heart Rate 90 67 77 Respiratory 20 18 18 Rate Blood Pressure 147/82 H 143/83 H 152/84 H O2 Saturation 100 99 100 Oxygen O2 Source Room air - Labs Labs: Microbiology 07/23/18 15:25 Wet Prep - Final Genital - Vaginal Laboratory Tests 07/23/18 07/23/18 07/23/18 14:43 14:43 14:43 WBC 8.9 RBC 4.79 Hgb 14.1 Hct 43.7 MCV 91.2 MCH 29.5 MCHC 32.4 RDW 14.2 Plt Count 292 MPV 8.9 Neut # (Auto) 6.4 Lymph # (Auto) 1.9 [place] # (Auto) 0.6 Eos # (Auto) 0.0 Baso # (Auto) 0.0 Absolute Nucleated RBC 0.00 Nucleated RBC % 0.0 Sodium 140 Potassium 3.9 Chloride 103 Carbon Dioxide 25 Anion Gap 12.0 BUN 12 Creatinine 0.8 Estimated GFR (MDRD) 75 L Glucose 111 H Calcium 10.0 Total Bilirubin 0.4 AST 30 ALT 44 Alkaline Phosphatase 83 Total Protein 8.0 Albumin 4.7 Globulin 3.3 Albumin/Globulin Ratio 1.4 Lipase 34 Urine Color YELLOW Urine Clarity CLEAR Urine pH 7.0 Ur Specific [place] <=1.005 Urine Protein NEGATIVE Urine Glucose (UA) NEGATIVE Urine Ketones NEGATIVE Urine Occult Blood NEGATIVE Urine Nitrite NEGATIVE Urine Bilirubin NEGATIVE Urine Urobilinogen 0.2 (NORMAL) Ur Leukocyte Esterase NEGATIVE Ur Microscopic Review NOT INDICATED Urine Culture Comments NOT INDICATED - Rads (name of study) Pelvic sono Radiology: EMP read contemporaneously (neg) PD MEDICAL DECISION MAKING - ED course ED course: This is a 52-year-old woman who now is frustrated by chronic abdominal pain. Is worse recently with migration to the suprapubic area and a sensation of vaginal and urethral swelling. Her urine and blood work is normal. She had a negative CAT scan last week. He is noted to have mild bimanual tenderness on either side and a wet prep positive for yeast which is treated with Diflucan. Departure - Departure Disposition: 01 Home, Self Care Clinical Impression: Yeast vaginitis Abdominal pain Qualifiers: Abdominal location: lower abdomen, unspecified Qualified Code(s): R10.30 - Lower abdominal pain, unspecified Condition: Good Record reviewed to determine appropriate education?: Yes Instructions: Cystitis Interstitial Prescriptions: Amitriptyline [Elavil] 10 mg PO HS #30 tablet Comments: Talk with your doctor about a referral for urology/cystoscopy for potential interstitial cystitis. We are starting the medication for that. Return for new or worsening symptoms. We have treated for the yeast infection with the Diflucan here. The single dose should be all you need.
[2018-07-23 14:48] LABS: BILIRUBIN,URINE NEGATIVE (NEGATIVE); GLUCOSE, URINE (UA) NEGATIVE (NEGATIVE); KETONES,URINE (UA) NEGATIVE (NEGATIVE); LEUKOCYTE ESTERASE, URINE NEGATIVE (NEGATIVE); NITRITE,URINE NEGATIVE (NEGATIVE); OCCULT BLOOD,URINE NEGATIVE (NEGATIVE); PROTEIN,URINE NEGATIVE (NEGATIVE); UROBILINOGEN,URINE 0.2 (NORMAL) E.U./dL (NORMAL)
[2018-07-23 14:51] LABS: BASOPHILS % (AUTO) 0.3 %; EOSINOPHILS % (AUTO) 0.4 %; HGB - HEMOGLOBIN 14.1 g/dL (12.0-16.0); LYMPHOCYTES # (AUTO) 1.9 10^3/uL (1.5-3.5); LYMPHOCYTES % (AUTO) 21.2 %; MEAN CORPUSCULAR HEMOGLOBIN 29.5 pg (27.0-31.0); MEAN CORPUSCULAR HGB CONC 32.4 g/dL (32.0-36.0); MEAN CORPUSCULAR VOLUME 91.2 fL (81.0-99.0); MEAN PLATELET VOLUME 8.9 fL (7.9-10.8); MONOCYTES # (AUTO) 0.6 10^3/uL (0.0-1.0); MONOCYTES % (AUTO) 6.5 %; NEUTROPHILS # (AUTO) 6.4 10^3/uL (1.5-6.6); NEUTROPHILS % (AUTO) 71.6 %; PLT - PLATELET COUNT 292 10^3/uL (130-450); RED BLOOD COUNT 4.79 10^6/uL (4.20-5.40); RED CELL DISTRIBUTION WIDTH 14.2 % (12.0-15.0); WHITE BLOOD COUNT 8.9 x10^3/uL (4.8-10.8)
[2018-07-23 14:59] LABS: CLARITY,URINE CLEAR (CLEAR)
[2018-07-23 15:02] LABS: ALBUMIN 4.7 g/dL (3.2-5.5); ALBUMIN/GLOBULIN RATIO 1.4 (1.0-2.2); BILIRUBIN,TOTAL 0.4 mg/dL (0.2-1.0); CREATININE 0.8 mg/dL (0.4-1.0)
[2018-07-23] MEDS ORDERED: ONDANSETRON ODT 4 MG TABLET TL STA (15:24)
[2018-07-23] MEDS ORDERED: HYDROmorphone 1 MG/ML CARPUJECT IM STA (15:24)
[2018-07-23] MEDS ORDERED: FLUCONAZOLE 100 MG TABLET PO STA (15:53)
--- NOTE | 2018-07-23 17:39 | Ultrasound Report ---
Reason: pelvic pain, R Procedure Date: 07/23/2018 Accession Number: [id number] / [id number] Procedure: US - Pelvic w/Transvag+Doppler Comp CPT Code: FULL RESULT: EXAM: PELVIC ULTRASOUND EXAM DATE: 07/23/2018 04:24 PM. CLINICAL HISTORY: Pelvic pain, R. COMPARISON: None. TECHNIQUE: Realtime transabdominal pelvic scan performed to identify the uterus and adnexa and as an overview of other pelvic structures, followed by transvaginal scan to provide greater detail of the uterus and adnexa, with static image documentation. FINDINGS: Uterus: Surgically absent. Right Ovary: Not seen due to technical limitations. Left Ovary: Not seen due to technical limitations. Free Fluid: None. Other: None. IMPRESSION: Unremarkable study with limitation as noted. RADIA
[2018-07-23 18:13] VITALS: BP 140/84
== END 2018-07-23 18:14 | disposition home or self-care (01) ==
LOC: ED 13:42
DX: B37.3 Candidiasis of vulva and vagina (principal); R10.30 Lower abdominal pain, unspecified; G89.29 Other chronic pain; Z90.710 Acquired absence of both cervix and uterus; Z90.721 Acquired absence of ovaries, unilateral
CPT/HCPCS: 36415; 76830; 76856; 80053; 81003; 83690; 85025; 87210; 87491; 87591; 93975; 96372; 99283; 99284; A9270; J1170; Q0162; 81001; 87086

== ENCOUNTER 2020-02-07 14:12 | Emergency (ER) | payer OTHER ==
[2020-02-07] MEDS ORDERED: SODIUM CHLORIDE 0.9% 1,000 ML IV STA (14:41)
[2020-02-07] MEDS ORDERED: PROMETHAZINE INJ 25 MG in SODIUM CHLORIDE 0.9% 50 ML IV STA (14:41)
[2020-02-07] MEDS ORDERED: diphenhydrAMINE INJ 50 MG/ML VIAL IVP STA (14:41)
[2020-02-07] MEDS ORDERED: SUMAtriptan 6 MG/0.5 ML VIAL SUBQ STA (14:42)
--- NOTE | 2020-02-07 14:43 | ED Physician Documentation ---
History of Present Illness - Stated complaint Stated Complaint: ZAYAS,HIGH BP - Chief complaint Chief Complaint: Neuro - History obtained from History obtained from: Patient, Family - History of Present Illness Timing: How many weeks ago (3) Pain level max: 8 Pain level now: 8 - Additonal information Additional information: 54-year-old female presents to the emergency department with left-sided neck pain and a left-sided headache for the past 3 weeks. Has seen her PCP x2. Saw her chiropractor as well who stated that she was "off". The pain radiates from the left ear down to the neck into the shoulder. Worse with movement and better with rest. Denies any trauma. No visual changes. Has a history of migraines, but has never lasted this long. She has been taking oxycodone, Flexeril at home without relief. Review of Systems Ten Systems: 10 systems reviewed and negative Constitutional: denies: Fever, Chills Ears: denies: Ear pain Nose: denies: Rhinorrhea / runny nose, Congestion Throat: denies: Sore throat Cardiac: reports: Palpitations. denies: Chest pain / pressure Respiratory: denies: Dyspnea, Cough GI: denies: Abdominal Pain, Nausea, Vomiting, Diarrhea : denies: Dysuria, Now EGA Skin: denies: Rash Musculoskeletal: reports: Neck pain. denies: Back pain Neurologic: reports: Numbness (Patient states that she has occasional tingling to the bilateral hands and feet. 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 Acidophilus/L. Rhamnosus 1 each PO DAILY 07/15/18 07/23/18 [Probiotic 15 Billion Cell Cap] Ondansetron Odt [Zofran] 4 mg TL Q6H PRN #10 tablet 07/15/18 07/23/18 Pantoprazole [Protonix] 40 mg PO DAILY 07/15/18 07/23/18 Polyethylene Glycol 3350 [Miralax] 119 gm PO DAILY 07/15/18 Amitriptyline [Elavil] 10 mg PO HS #30 tablet 07/23/18 oxyCODONE [Roxicodone] 5 mg PO Q4-6H 07/23/18 07/23/18 methocarbamoL [Robaxin] 500 mg PO Q6H PRN #14 tablet 02/07/20 predniSONE [Deltasone] 10 mg PO [id number] #42 tab 02/07/20 - Allergies Allergies/Adverse Reactions: Allergies Allergy/AdvReac Type Severity Reaction Status Date / Time acetaminophen [From Vicodin] AdvReac Emesis Verified 02/07/20 14:25 cephalexin monohydrate * AdvReac Unknown Verified 02/07/20 14:25 [From Keflex] hydrocodone [From Vicodin] AdvReac Emesis Verified 02/07/20 14:25 morphine AdvReac Unknown Verified 02/07/20 14:25 NSAIDS (Non-Steroidal AdvReac Unknown Verified 02/07/20 14:25 Anti-Inflamma - Social History Does the pt smoke?: No Smoking Status: Never smoker Does the pt drink ETOH?: Yes Does the pt have substance abuse?: No - Immunizations Immunizations are current?: Yes - POLST Patient has POLST: No PD ED PE NORMAL - Vitals Vital signs reviewed: Yes - General General: Alert and oriented X 3, No acute distress, Well developed/nourished - HEENT HEENT: PERRL, Ears normal, Moist mucous membranes, Pharynx benign - Neck Neck: Supple, no meningeal sign, No bony TTP, No JVD, No bruit, Other (Mild tenderness to palpation over the left side of the neck. No bruit. No JVD. mild spasm) - Cardiac Cardiac: Strong equal pulses, Other (tachycardic) - Respiratory Respiratory: No respiratory distress, Clear bilaterally - Abdomen Abdomen: Normal bowel sounds, Soft, Non tender, Non distended - Derm Derm: Warm and dry - Extremities Extremities: No edema - Neuro Neuro: Alert and oriented X 3, manager neonatal 2-12 intact, No motor deficit, No sensory deficit - Psych Psych: Normal mood, Normal affect Results - Vitals Vitals: Vital Signs - 24 hr 02/07/20 02/07/20 02/07/20 14:15 15:09 16:47 Temperature 36.3 C L 36.5 C Heart Rate 121 H 89 104 H Respiratory 18 10 L 14 Rate Blood Pressure 135/101 H 146/93 H 153/85 H O2 Saturation 97 100 100 Oxygen O2 Source Room air - EKG (time done) 1421 Rate: Rate (enter#) (126) Rhythm: Sinus tachycardia [place]: Normal Intervals: Normal NC QRS: Normal Ischemia: Normal ST segments - Labs Labs: Laboratory Tests 02/07/20 02/07/20 15:00 15:00 WBC 10.0 RBC 4.64 Hgb 14.0 Hct 42.2 MCV 90.9 MCH 30.2 MCHC 33.2 RDW 14.1 Plt Count 323 MPV 10.2 Neut # (Auto) 5.8 Lymph # (Auto) 3.1 [place] # (Auto) 0.9 Eos # (Auto) 0.2 Baso # (Auto) 0.1 Absolute Nucleated RBC 0.00 Nucleated RBC % 0.0 Sodium 139 Potassium 3.9 Chloride 105 Carbon Dioxide 24 Anion Gap 10.0 BUN 17 Creatinine 0.8 Estimated GFR (MDRD) 74 L Glucose 108 H Calcium 10.1 - Rads (name of study) CT angio head Radiology: Prelim report reviewed, EMP read contemporaneously, See rad report (no acute findings) Ct angio neck Radiology: Prelim report reviewed, EMP read contemporaneously, See rad report (no acute findings) PD MEDICAL DECISION MAKING - ED course Complexity details: reviewed results, re-evaluated patient, considered differential, d/w patient, d/w family ED course: No acute findings on CT angiogram of the head and neck. No dissections, aneurysms, subarachnoid hemorrhage. Pain well controlled. Headache improved with haloperidol. We will change her muscle relaxant from Flexeril to Robaxin and place her on a steroid taper to see if this improves her symptoms. Possible radiculopathy. Patient and family counseled regarding signs and symptoms for which I believe and urgent re-evaluation would be necessary. Patient with good understanding of and agreement to plan and is comfortable going home at this time This document was made in part using voice recognition software. While efforts are made to proofread this document, sound alike and grammatical errors may occur. Departure - Departure Disposition: Home, Self Care Clinical Impression: Neck pain Headache Qualifiers: Headache type: unspecified Headache chronicity pattern: unspecified pattern Intractability: not intractable Qualified Code(s): R51.9 - Headache, unspecified Condition: Good Instructions: ED Neck Pain No Trauma, ED Headache Migraine Follow-Up: AMADA KENDALL MD [Primary Care Provider] - Within 1 week Prescriptions: predniSONE [Deltasone] 10 mg PO [id number] #42 tab methocarbamoL [Robaxin] 500 mg PO Q6H PRN #14 tablet PRN Reason: neck pain Comments: The CT scans of your head and neck are normal. Your blood vessels appear normal. Follow-up with your doctor for further care. Return if you worsen. We will try changing your muscle relaxant from Flexeril to Robaxin to see if this helps. We will trial you on a steroid taper as well.
[2020-02-07 15:04] LABS: BASOPHILS # (AUTO) 0.1 10^3/uL (0.0-0.1); BASOPHILS % (AUTO) 0.6 %; EOSINOPHILS # (AUTO) 0.2 10^3/uL (0.0-0.7); EOSINOPHILS % (AUTO) 1.6 %; LYMPHOCYTES # (AUTO) 3.1 10^3/uL (1.5-3.5); LYMPHOCYTES % (AUTO) 30.9 %; MEAN CORPUSCULAR HEMOGLOBIN 30.2 pg (27.0-31.0); MEAN CORPUSCULAR HGB CONC 33.2 g/dL (32.0-36.0); MEAN CORPUSCULAR VOLUME 90.9 fL (81.0-99.0); MEAN PLATELET VOLUME 10.2 fL (7.9-10.8); MONOCYTES # (AUTO) 0.9 10^3/uL (0.0-1.0); NEUTROPHILS # (AUTO) 5.8 10^3/uL (1.5-6.6); NEUTROPHILS % (AUTO) 57.6 %; PLT - PLATELET COUNT 323 10^3/uL (130-450); RED BLOOD COUNT 4.64 10^6/uL (4.20-5.40); RED CELL DISTRIBUTION WIDTH 14.1 % (12.0-15.0)
[2020-02-07 15:12] LABS: CALCIUM 10.1 mg/dL (8.5-10.3); CREATININE 0.8 mg/dL (0.4-1.0)
[2020-02-07] MEDS ORDERED: IOVERSOL 320 100 ML VIAL IVP ONE ×2 (15:35→16:27)
[2020-02-07] MEDS ORDERED: DEXAMETHASONE 10 MG/ML VIAL IVP STA (16:23)
[2020-02-07] MEDS ORDERED: HALOPERIDOL 5 MG/ML VIAL IVP STA (16:31)
--- NOTE | 2020-02-07 16:36 | CT Report ---
PROCEDURE: ANGIO HEAD W/WO INDICATIONS: L sided headache, neck pain x 3 weeks CONTRAST: IV CONTRAST: Optiray 320 ml: 80 PO CONTRAST: *NO PO CONTRAST TECHNIQUE: Precontrast 4.5 mm thick angled axial sections acquired from the foramen magnum to the vertex. Afte r the administration of intravenous contrast, 1 mm thick sections acquired through the [place] of [place] is. Postcontrast 4.5 mm thick sections then re-acquired from the foramen magnum to the vertex. 3-di mensional [id number]-tdmqcsuld-ysufldrpkr (MIP) and/or volume rendering reformats were acquired of the c entral intracranial vasculature. For radiation dose reduction, the following was used: automated ex posure control, adjustment of mA and/or kV according to patient size. COMPARISON: CT head dated 08/20/2014 FINDINGS: Image quality: Excellent. Anterior circulation: Intracranial internal carotid arteries are normal in size and flow. The flow within the paired anterior cerebral arteries is normal and symmetric. The flow within the middle cer ebral arteries is normal and symmetric. The anterior communicating artery is seen. No aneurysms are seen. Posterior circulation: Visualized portions of the vertebral arteries demonstrate normal caliber, and join to form a normal appearing basilar artery. Flow within the posterior cerebral arteries is norm al and symmetric. No aneurysms are seen. CSF spaces: Ventricles are normal in size and shape. Basal cisterns are patent. No extra-axial flu id collections. Brain: No midline shift. No intracranial bleeds or masses. Smyth-white matter interface appears int act. Skull and face: Calvarium and facial bones appear intact, without suspicious lesions. Sinuses: Visualized sinuses and mastoids are clear. IMPRESSION: 1. CT head without acute intracranial abnormalities. 2. Negative CT angiogram of the intracranial arterial vasculature. Reviewed by: Amos Fuentes MD on 02/07/2020 3:35 PM [facility] Approved by: Amos Fuentes MD on 02/07/2020 3:35 PM [facility] Station ID: [id number]
--- NOTE | 2020-02-07 16:41 | CT Report ---
PROCEDURE: ANGIO NECK W INDICATIONS: L sided headache, neck pain x 3 weeks CONTRAST: IV CONTRAST: Optiray 320 ml: 80 PO CONTRAST: *NO PO CONTRAST TECHNIQUE: After the administration of intravenous contrast, 1.5 mm axial sections acquired from the aortic arch to the [place]. Coronal 3-D maximum intensity projection (MIP) and/or volume rendering ref ormats were then performed. For radiation dose reduction, the following was used: automated exposur e control, adjustment of mA and/or kV according to patient size. COMPARISON: None. FINDINGS: Image quality: Excellent. Carotid system: The great vessels demonstrate a conventional anatomy as they arise from the aortic a rch. The origins of the common carotid arteries appear patent. The common carotid arteries demonstr ate normal calibers and courses. The bifurcation regions appear normal bilaterally. The internal ca rotid arteries demonstrate normal caliber and course. Posterior circulation: The origins of the vertebral arteries appear patent. The more superior porti ons of the vertebral arteries demonstrate normal course and caliber. They join to form a normal appe aring basilar artery. Soft tissues: Visualized neck soft tissues demonstrate no suspicious abnormalities. The thyroid gla nd is normal in size. Bones: No suspicious bony lesions. There is mild straightening of normal cervical lordosis likely re lated to positioning and/or concurrent muscle spasms. Multilevel cervical spondylosis most pronounced at C5-6. No acute compression fractures of the imaged spine. C1-C2 relationship is preserved. IMPRESSION: Negative CT angiogram of the extracranial/neck carotid vasculature. No evidence for occlusion, high-g rade stenosis, or dissection. Cervical spine without acute osseous abnormalities. Multilevel cervical spondylosis most severe at C5 -6. The estimate of stenosis included in the report of the imaging study was calculated using the NASCET method Reviewed by: Amos Fuentes MD on 02/07/2020 3:39 PM [facility] Approved by: Amos Fuentes MD on 02/07/2020 3:39 PM [facility] Station ID: [id number]
[2020-02-07 16:48] VITALS: BP 153/85
== END 2020-02-07 17:10 | disposition home or self-care (01) ==
LOC: ED 14:12
DX: M47.812 Spondylosis without myelopathy or radiculopathy, cervical region (principal); R51.9 Headache, unspecified; R00.0 Tachycardia, unspecified
CPT/HCPCS: 36415; 70496; 70498; 80048; 85025; 93005; 96365; 96372; 96375; 99284; J1200; J7040; Q9967

== ENCOUNTER 2021-08-26 08:34 | Emergency (ER) | payer OTHER ==
[2021-08-26] MEDS ORDERED: HYDROmorphone 1 MG/ML CARPUJECT IVP STA (08:58)
[2021-08-26] MEDS ORDERED: SODIUM CHLORIDE 0.9% 1,000 ML IV STA (08:58)
--- NOTE | 2021-08-26 08:58 | ED Physician Documentation ---
History of Present Illness - Stated complaint Stated Complaint: RASH/STOMACH PX - Chief complaint Chief Complaint: General - History obtained from History obtained from: Patient - Additonal information Additional information: 56-year-old woman with history of diverticulitis, C. difficile, hysterectomy presents with generalized illness that she feels like has been going on for a couple of weeks, she feels flushed and sweaty with increasing left lower quadrant pain and. Over the last 3 days she noticed a rash under her breasts. Increasing pain especially left lower quadrant since last night. Feeling of needing to have a bowel movement but really unable to. No dark or bloody stools. 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 Acidophilus/L. Rhamnosus 1 each PO DAILY 07/15/18 07/23/18 [Probiotic 15 Billion Cell Cap] Ondansetron Odt [Zofran] 4 mg TL Q6H PRN #10 tablet 07/15/18 07/23/18 Pantoprazole [Protonix] 40 mg PO DAILY 07/15/18 07/23/18 Polyethylene Glycol 3350 [Miralax] 119 gm PO DAILY 07/15/18 Amitriptyline [Elavil] 10 mg PO HS #30 tablet 07/23/18 oxyCODONE [Roxicodone] 5 mg PO Q4-6H 07/23/18 07/23/18 methocarbamoL [Robaxin] 500 mg PO Q6H PRN #14 tablet 02/07/20 predniSONE [Deltasone] 10 mg PO [id number] #42 tab 02/07/20 Dicyclomine [Bentyl] 1 - 2 tab PO QID PRN #20 cap 08/26/21 Ondansetron Odt [Zofran] 4 mg TL Q6H PRN #10 tablet 08/26/21 Oxycodone HCl/Acetaminophen 1 - 2 each PO Q6H PRN #10 tablet 08/26/21 [Percocet 5-325 mg Tablet] - Allergies Allergies/Adverse Reactions: Allergies Allergy/AdvReac Type Severity Reaction Status Date / Time acetaminophen [From Vicodin] AdvReac Emesis Verified 08/26/21 08:57 cephalexin monohydrate * AdvReac Unknown Verified 08/26/21 08:57 [From Keflex] hydrocodone [From Vicodin] AdvReac Emesis Verified 08/26/21 08:57 morphine AdvReac Unknown Verified 08/26/21 08:57 NSAIDS (Non-Steroidal AdvReac Unknown Verified 08/26/21 08:57 Anti-Inflamma - Social History Does the pt smoke?: No Smoking Status: Never smoker Does the pt drink ETOH?: Yes Does the pt have substance abuse?: No - Immunizations Immunizations are current?: Yes - POLST Patient has POLST: No PD ED PE NORMAL - Vitals Vital signs reviewed: Yes - General General: Alert and oriented X 3, No acute distress - HEENT HEENT: PERRL, Pharynx benign - Neck Neck: Supple, no meningeal sign, No bony TTP - Cardiac Cardiac: No murmur, Other (Mild resting tachycardia, regular) - Respiratory Respiratory: No respiratory distress, Clear bilaterally - Abdomen Abdomen: Normal bowel sounds, Soft, Other (Mild left lower quadrant tenderness without surgical signs) - Back Back: No CVA TTP, No spinal TTP - Derm Derm: Other (On the upper abdominal wall there is a rash with small dots and satellite lesions consistent most with Carolyn.) - Extremities Extremities: No edema, No calf tenderness / cord - Neuro Neuro: Alert and oriented X 3, Normal speech Results - Vitals Vitals: Vital Signs - 24 hr 08/26/21 08/26/21 08:50 10:23 Temperature 36.8 C Heart Rate 115 H 89 Respiratory 14 13 Rate Blood Pressure 153/91 H 160/91 H O2 Saturation 97 99 Oxygen O2 Source Room air - Labs Labs: Laboratory Tests 08/26/21 08/26/21 08/26/21 08:59 09:07 09:07 WBC 10.8 RBC 4.72 Hgb 14.5 Hct 43.1 MCV 91.3 MCH 30.7 MCHC 33.6 RDW 14.6 Plt Count 336 MPV 10.3 Neut # (Auto) 7.7 H Lymph # (Auto) 2.3 [place] # (Auto) 0.6 Eos # (Auto) 0.0 Baso # (Auto) 0.1 Absolute Nucleated RBC 0.00 Nucleated RBC % 0.0 Sodium 141 Potassium 4.1 Chloride 107 Carbon Dioxide 22 Anion Gap 12.0 BUN 11 Creatinine 0.9 Estimated GFR (MDRD) 65 L Glucose 138 H Calcium 10.0 Total Bilirubin 0.5 AST 25 ALT 30 Alkaline Phosphatase 85 Total Protein 7.9 Albumin 4.7 Globulin 3.2 Albumin/Globulin Ratio 1.5 Lipase 42 Urine Color YELLOW Urine Clarity CLEAR Urine pH 6.0 Ur Specific [place] <=1.005 Urine Protein NEGATIVE Urine Glucose (UA) NEGATIVE Urine Ketones NEGATIVE Urine Occult Blood NEGATIVE Urine Nitrite NEGATIVE Urine Bilirubin NEGATIVE Urine Urobilinogen 0.2 (NORMAL) Ur Leukocyte Esterase NEGATIVE Ur Microscopic Review NOT INDICATED Urine Culture Comments NOT INDICATED PD MEDICAL DECISION MAKING - ED course ED course: 56-year-old woman presents with left lower quadrant pain and also looks to be a yeast infection on the skin. She feels generally ill but looks well with only very mild left lower quadrant tenderness. Her work-up here was negative, with unremarkable CT scanning and labs. She was administered Diflucan here and other symptomatic treatments as well as discussing close return precautions. Departure - Departure Disposition: 01 Home, Self Care Clinical Impression: Yeast infection of the skin Abdominal pain Qualifiers: Abdominal location: left lower quadrant Qualified Code(s): R10.32 - Left lower quadrant pain Condition: Stable Record reviewed to determine appropriate education?: Yes Instructions: ED Abdominal Pain Female Non-Specific Abdominal Pain Prescriptions: Dicyclomine [Bentyl] 1 - 2 tab PO QID PRN #20 cap PRN Reason: Abdominal Pain Oxycodone HCl/Acetaminophen [Percocet 5-325 mg Tablet] 1 - 2 each PO Q6H PRN #10 tablet PRN Reason: pain Ondansetron Odt [Zofran] 4 mg TL Q6H PRN #10 tablet PRN Reason: Nausea / Vomiting Comments: I sent your prescriptions electronically to [facility] in [place]. Work-up today is without significantly abnormal blood work, and the CAT scan did not show a cause for your pain. You do have the yeast infection and gave you a dose of Diflucan here. And I am sending you home with some symptomatic medications for your stomach. Return if worse or if not better over the next 24 hours. Follow-up with your doctor next week regardless. Discharge Date/Time: 08/26/21 10:52
[2021-08-26 09:14] LABS: BASOPHILS # (AUTO) 0.1 10^3/uL (0.0-0.1); BASOPHILS % (AUTO) 0.5 %; EOSINOPHILS % (AUTO) 0.4 %; HCT - HEMATOCRIT 43.1 % (37.0-47.0); HGB - HEMOGLOBIN 14.5 g/dL (12.0-16.0); LYMPHOCYTES # (AUTO) 2.3 10^3/uL (1.5-3.5); LYMPHOCYTES % (AUTO) 21.1 %; MEAN CORPUSCULAR HEMOGLOBIN 30.7 pg (27.0-31.0); MEAN CORPUSCULAR HGB CONC 33.6 g/dL (32.0-36.0); MEAN CORPUSCULAR VOLUME 91.3 fL (81.0-99.0); MEAN PLATELET VOLUME 10.3 fL (7.9-10.8); MONOCYTES # (AUTO) 0.6 10^3/uL (0.0-1.0); MONOCYTES % (AUTO) 5.9 %; NEUTROPHILS # (AUTO) 7.7 10^3/uL (1.5-6.6); NEUTROPHILS % (AUTO) 71.8 %; PLT - PLATELET COUNT 336 10^3/uL (130-450); RED BLOOD COUNT 4.72 10^6/uL (4.20-5.40); RED CELL DISTRIBUTION WIDTH 14.6 % (12.0-15.0); WHITE BLOOD COUNT 10.8 x10^3/uL (4.8-10.8)
[2021-08-26 09:25] LABS: ALBUMIN 4.7 g/dL (3.2-5.5); ALBUMIN/GLOBULIN RATIO 1.5 (1.0-2.2); BILIRUBIN,TOTAL 0.5 mg/dL (0.2-1.0); CREATININE 0.9 mg/dL (0.4-1.0); POTASSIUM 4.1 mmol/L (3.5-5.0); TOTAL PROTEIN 7.9 g/dL (6.7-8.2)
[2021-08-26 09:35] LABS: BILIRUBIN,URINE NEGATIVE (NEGATIVE); GLUCOSE, URINE (UA) NEGATIVE (NEGATIVE); KETONES,URINE (UA) NEGATIVE (NEGATIVE); LEUKOCYTE ESTERASE, URINE NEGATIVE (NEGATIVE); NITRITE,URINE NEGATIVE (NEGATIVE); OCCULT BLOOD,URINE NEGATIVE (NEGATIVE); PROTEIN,URINE NEGATIVE (NEGATIVE); UROBILINOGEN,URINE 0.2 (NORMAL) E.U./dL (NORMAL)
[2021-08-26 09:38] LABS: CLARITY,URINE CLEAR (CLEAR)
[2021-08-26] MEDS ORDERED: ONDANSETRON 4 MG/2 ML VIAL IVP STA (09:54)
[2021-08-26] MEDS ORDERED: IOPAMIDOL-300 50 ML VIAL IVP ONE (09:57)
--- NOTE | 2021-08-26 10:16 | CT Report ---
PROCEDURE: Abdomen/Pelvis W INDICATIONS: IV only, LLQ pain CONTRAST: IV CONTRAST: Isovue 300 ml: 100 PO CONTRAST: *NO PO CONTRAST TECHNIQUE: After the administration of intravenous contrast, 5 mm thick sections acquired from the diaphragms to the symphysis. 5 mm thick coronal and sagittal reformats were acquired. For radiation dose reducti on, the following was used: automated exposure control, adjustment of mA and/or kV according to jennifer ent size. COMPARISON: None. FINDINGS: Image quality: Excellent. ABDOMEN: Lung bases: Lung bases are clear. Heart size is normal. Solid organs: Liver and spleen are normal in size and enhancement. Diffuse fatty eventration liver. Gallbladder is surgically absent. Biliary system is non dilated. Pancreas enhances normally. No ad renal nodules. Kidneys demonstrate normal size and enhancement, without hydronephrosis. Peritoneum and bowel: Bowel loops demonstrate normal wall thickness and caliber. No free fluid or a ir. The appendix is normal. Nodes and vessels: No retroperitoneal or mesenteric adenopathy by size criteria. Aorta and inferior vena cava are normal in size. Miscellaneous: No ventral hernias. PELVIS: Genitourinary: Bladder wall thickness is normal. Miscellaneous: No inguinal hernias or adenopathy. Bones: No suspicious bony lesions. No vertebral body compression fractures. Spine degenerative disc disease and facet arthropathy are noted. IMPRESSION: 1. No acute disease process. 2. No free fluid or free air. 3. No dilated loops of bowel. 4. Appendix is normal. 5. Hepatic steatosis. Reviewed by: Carlotta Loredo MD, PhD on 08/26/2021 10:15 AM PDT Approved by: Carlotta Loredo MD, PhD on 08/26/2021 10:15 AM PDT Station ID: [id number]
[2021-08-26] MEDS ORDERED: FLUCONAZOLE 100 MG TABLET PO STA (10:32)
[2021-08-26 11:17] VITALS: BP 160/91
== END 2021-08-26 10:52 | disposition home or self-care (01) ==
LOC: ED 08:34
DX: R10.32 Left lower quadrant pain (principal); B37.2 Candidiasis of skin and nail
CPT/HCPCS: 36415; 74177; 80053; 81003; 83690; 85025; 96374; 96375; 99282; 99284; A9270; J1170; Q9967; 81001; 87086

== ENCOUNTER 2022-12-04 11:36 | Emergency (ER) | payer OTHER ==
[2022-12-04 12:10] LABS: BASOPHILS # (AUTO) 0.1 10^3/uL (0.0-0.1); BASOPHILS % (AUTO) 0.5 %; EOSINOPHILS % (AUTO) 0.3 %; HCT - HEMATOCRIT 42.5 % (37.0-47.0); HGB - HEMOGLOBIN 14.2 g/dL (12.0-16.0); LYMPHOCYTES # (AUTO) 2.5 10^3/uL (1.5-3.5); LYMPHOCYTES % (AUTO) 22.4 %; MEAN CORPUSCULAR HEMOGLOBIN 30.3 pg (27.0-31.0); MEAN CORPUSCULAR HGB CONC 33.4 g/dL (32.0-36.0); MEAN CORPUSCULAR VOLUME 90.6 fL (81.0-99.0); MEAN PLATELET VOLUME 10.6 fL (7.9-10.8); MONOCYTES # (AUTO) 0.7 10^3/uL (0.0-1.0); MONOCYTES % (AUTO) 5.9 %; NEUTROPHILS # (AUTO) 7.8 10^3/uL (1.5-6.6); NEUTROPHILS % (AUTO) 70.5 %; PLT - PLATELET COUNT 311 10^3/uL (130-450); RED BLOOD COUNT 4.69 10^6/uL (4.20-5.40); RED CELL DISTRIBUTION WIDTH 14.2 % (12.0-15.0); WHITE BLOOD COUNT 11.1 x10^3/uL (4.8-10.8)
[2022-12-04 12:19] LABS: BILIRUBIN,URINE NEGATIVE (NEGATIVE); GLUCOSE, URINE (UA) NEGATIVE (NEGATIVE); KETONES,URINE (UA) NEGATIVE (NEGATIVE); LEUKOCYTE ESTERASE, URINE NEGATIVE (NEGATIVE); NITRITE,URINE NEGATIVE (NEGATIVE); OCCULT BLOOD,URINE NEGATIVE (NEGATIVE); PROTEIN,URINE NEGATIVE (NEGATIVE); UROBILINOGEN,URINE 0.2 (NORMAL) E.U./dL (NORMAL)
[2022-12-04 12:20] LABS: CLARITY,URINE CLEAR (CLEAR); HCG UR QUAL NEGATIVE
[2022-12-04 12:22] LABS: ALBUMIN 4.6 g/dL (3.2-5.5); ALBUMIN/GLOBULIN RATIO 1.7 (1.0-2.2); BILIRUBIN,TOTAL 0.3 mg/dL (0.2-1.0); CALCIUM 10.2 mg/dL (8.5-10.3); POTASSIUM 3.9 mmol/L (3.5-4.5); TOTAL PROTEIN 7.3 g/dL (6.4-8.9)
--- NOTE | 2022-12-04 13:46 | ED Physician Documentation ---
PD HPI ABD PAIN - Stated complaint Stated Complaint: BACK PX, NAUSEA - Chief complaint Chief Complaint: Abd Pain - History obtained from History obtained from: Patient - History of Present Illness Timing - onset: How many weeks ago (1) Timing - duration: Weeks (1) Timing - details: Gradual onset, Still present Quality: Cramping, Aching, Pain Location: LLQ Radiation: Lower back. No: Chest, , Left flank Improved by: Laying still, Other (not improved by soft/liquid diet and home tylenol. Having increased pain the past 1-2 days. No fever nor diffuse pain nor vomitng.) Worsened by: Eating, Moving, Palpation. No: Breathing Associated symptoms: Nausea, Diarrhea (loose stools without mucous, blood, melena.). No: Fever, Vomiting Similar symptoms before: Diagnosis (she states feeling like prior diverticulitis.) Recently seen: Not recently seen Review of Systems Constitutional: denies: Fever, Chills, Myalgias Nose: denies: Rhinorrhea / runny nose, Congestion Throat: denies: Sore throat Respiratory: denies: Cough GI: reports: Abdominal Pain, Nausea, Constipation, Diarrhea. denies: Bloody / black stool : denies: Dysuria, Frequency (s) PD PAST MEDICAL HISTORY - Past Medical History Cardiovascular: None Respiratory: Asthma Neuro: None Endocrine/Autoimmune: None GI: GERD, C.difficile (from antibiotics for prior diverticulitis, first Bactrim and then ?Augmentin, and had to be treated 2 courses of meds to get improved. 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 Acidophilus/L. Rhamnosus 1 each PO DAILY 07/15/18 12/04/22 [Probiotic 15 Billion Cell Cap] Pantoprazole [Protonix] 40 mg PO DAILY 07/15/18 12/04/22 Dicyclomine [Bentyl] 1 - 2 tab PO QID PRN #20 cap 08/26/21 12/04/22 Ciprofloxacin HCl [Cipro] 500 mg PO BID 5 Days #10 tablet 12/04/22 L.acid/L.casei/B.bif/B.kerri/Fos 1 each PO TID 7 Days #20 cap 12/04/22 [Probiotic Blend Capsule] Oxycodone HCl/Acetaminophen 1 each PO Q6H PRN #15 tablet 12/04/22 [Percocet 5-325 mg Tablet] Prochlorperazine Maleate 10 mg PO Q6H PRN #15 tab 12/04/22 [Compazine] metroNIDAZOLE [Flagyl] 500 mg PO BID 5 Days #10 tablet 12/04/22 - Allergies Allergies/Adverse Reactions: Allergies Allergy/AdvReac Type Severity Reaction Status Date / Time acetaminophen [From Vicodin] AdvReac Emesis Verified 12/04/22 11:48 cephalexin monohydrate * AdvReac Unknown Verified 12/04/22 11:48 [From Keflex] hydrocodone [From Vicodin] AdvReac Emesis Verified 12/04/22 11:48 morphine AdvReac Unknown Verified 12/04/22 11:48 NSAIDS (Non-Steroidal AdvReac Unknown Verified 12/04/22 11:48 Anti-Inflamma - Social History Does the pt smoke?: No Smoking Status: Never smoker Does the pt drink ETOH?: Yes Does the pt have substance abuse?: No - Immunizations Immunizations are current?: Yes - POLST Patient has POLST: No PD ED PE NORMAL - Vitals Vital signs reviewed: Yes - General General: Alert and oriented X 3, Well developed/nourished - Neck Neck: Supple, no meningeal sign, No adenopathy - Cardiac Cardiac: RRR, No murmur - Respiratory Respiratory: Clear bilaterally - Abdomen Abdomen: Soft, Non distended, No organomegaly, Other (tender LLQ and left mid abd with some local guarding but no percussion/rebound tenderness. Some referred tender from mid abdomen. No general peritoneal findings nor distension. ). No: Normal bowel sounds (dcreased) - Female Female : Deferred - Rectal Rectal: Deferred - Derm Derm: Normal color, Warm and dry - Neuro Neuro: Alert and oriented X 3, No motor deficit, Normal speech Results - Vitals Vitals: Vital Signs - 24 hr 12/04/22 12/04/22 12/04/22 11:48 13:46 15:00 Temperature 36.7 C Heart Rate 87 61 62 Respiratory 18 18 Rate Blood Pressure 157/88 H 150/74 H 178/76 H O2 Saturation 98 99 99 12/04/22 12/04/22 17:00 18:12 Temperature Heart Rate 54 L 60 Respiratory 16 16 Rate Blood Pressure 123/62 126/69 O2 Saturation 96 97 Oxygen O2 Source Room air - Labs Labs: Laboratory Tests 12/04/22 12/04/22 12/04/22 11:57 12:00 12:00 WBC 11.1 H RBC 4.69 Hgb 14.2 Hct 42.5 MCV 90.6 MCH 30.3 MCHC 33.4 RDW 14.2 Plt Count 311 MPV 10.6 Neut # (Auto) 7.8 H Lymph # (Auto) 2.5 [place] # (Auto) 0.7 Eos # (Auto) 0.0 Baso # (Auto) 0.1 Absolute Nucleated RBC 0.00 Nucleated RBC % 0.0 Sodium 138 Potassium 3.9 Chloride 107 Carbon Dioxide 25 Anion Gap 6.0 BUN 12 Creatinine 1.0 Estimated GFR (MDRD) 57 L Glucose 121 H Calcium 10.2 Total Bilirubin 0.3 AST 20 ALT 25 Alkaline Phosphatase 94 Total Protein 7.3 Albumin 4.6 Globulin 2.7 Albumin/Globulin Ratio 1.7 Lipase 25 Urine Color YELLOW Urine Clarity CLEAR Urine pH 6.0 Ur Specific [place] <=1.005 Urine Protein NEGATIVE Urine Glucose (UA) NEGATIVE Urine Ketones NEGATIVE Urine Occult Blood NEGATIVE Urine Nitrite NEGATIVE Urine Bilirubin NEGATIVE Urine Urobilinogen 0.2 (NORMAL) Ur Leukocyte Esterase NEGATIVE Ur Microscopic Review NOT INDICATED Urine Culture Comments NOT INDICATED Urine HCG, Qual NEGATIVE PD Medical Decision Making - ED course Complexity details: reviewed results (mildly elevateed WBC count 11.1. Chemistry panel without acute abnormality. Urine test is without signs of infection. 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 Got more nausea and vomited after getting IV and PO meds. Seems side effect of meds. Abd still without distension/general tender. I do not feel obstruction. Given more antiemetics. Subsequently improved enough to try home. ), considered differential (LLQ pain continues and increasing despite home meds/change diet. Feels similar to prior diverticulitis episodes. Abx without peritoneal signs. discussed with pt and shared decison for not imaging, treat empirically. ), d/w patient Departure - Departure Disposition: 01 Home, Self Care Clinical Impression: Left lower quadrant abdominal pain, Acute diverticulitis Condition: Stable Record reviewed to determine appropriate education?: Yes Instructions: ED Diverticulitis Follow-Up: BRIA EVANGELISTA DO [Primary Care Provider] - Prescriptions: Ciprofloxacin HCl [Cipro] 500 mg PO BID 5 Days #10 tablet Prochlorperazine Maleate [Compazine] 10 mg PO Q6H PRN #15 tab PRN Reason: Nausea / Vomiting metroNIDAZOLE [Flagyl] 500 mg PO BID 5 Days #10 tablet Oxycodone HCl/Acetaminophen [Percocet 5-325 mg Tablet] 1 each PO Q6H PRN #15 tablet PRN Reason: pain L.acid/L.casei/B.bif/B.kerri/Fos [Probiotic Blend Capsule] 1 each PO TID 7 Days #20 cap Comments: Your symptoms do sound like diverticulitis and you have had this before with similar symptoms. We are treating it that way with a combination of the ciprofloxacin and metronidazole antibiotics both twice daily with food. Had a probiotic blend as well to help mitigate the GI effects of the antibiotics. Stay well-hydrated. [place]ie food and soft diet. Add Tylenol every 4-6 hours if needed for pain or oxycodone/acetaminophen as needed for worse pain. I would anticipate improvement over the next 2 to 3 days and resolution by 4 to 5 days. Use Compazine if needed for nausea. I sent your prescriptions to the [facility] pharmacy in [place]. Recheck if not improving well over the next few days and return if worsening. In particular be watching for high fevers, repetitive vomiting, generalized or worsening pain or bloody stools. I am prescribing a short course of narcotic pain medication for you. These are potentially dangerous and addictive medications that should be used carefully. These medications may constipate you. Take an [id number] stool softener such as docusate twice daily with plenty of water while taking these medications. If you go 24 hours without a bowel movement, take [id number] MiraLAX, per package instructions. Do not drink or drive while taking these medications. If you received narcotic or sedating medications while in the emergency department do not drive for 24 hours. Store this medication in a safe, secure place and out of reach of children. It is a violation of federal law to give or sell this medication to another person or to use in a manner other than prescribed. The ED will not refill narcotic prescriptions, including prescriptions lost or stolen. You can dispose of unwanted medications at the [facility]'s office or at several pharmacies such as [facility]. Forms: PCP List Discharge Date/Time: 12/04/22 19:04
[2022-12-04] MEDS ORDERED: levoFLOXacin 500 MG/100 ML 500 MG/100 ML BAG IV STA (14:37)
[2022-12-04] MEDS ORDERED: SODIUM CHLORIDE 0.9% 1,000 ML IV STA (14:37)
[2022-12-04] MEDS ORDERED: ONDANSETRON 4 MG/2 ML VIAL IVP STA (14:38)
[2022-12-04] MEDS ORDERED: HYDROmorphone 1 MG/ML CARPUJECT IVP STA ×2 (14:38→15:59)
[2022-12-04] MEDS ORDERED: metroNIDAZOLE 250 MG TABLET PO STA (14:39)
[2022-12-04] MEDS ORDERED: PROCHLORPERAZINE 10 MG/2 ML VIAL IVP STA ×2 (15:59→16:56)
[2022-12-04] MEDS ORDERED: ONDANSETRON ODT 4 MG Prepack 2 TL PRN (16:50)
[2022-12-04] MEDS ORDERED: oxyCODONE/ACET 5/325 Prepack 4 PO STA (16:50)
[2022-12-04 18:13] VITALS: BP 126/69; O2SAT 97
[2022-12-04] MEDS ORDERED: DROPERIDOL 5 MG/2 ML VIAL IVP STA (18:20)
== END 2022-12-04 19:04 | disposition home or self-care (01) ==
LOC: ED 11:36
DX: K57.92 Diverticulitis of intestine, part unspecified, without perforation or abscess without bleeding (principal); Z79.899 Other long term (current) drug therapy
CPT/HCPCS: 36415; 80053; 81003; 81025; 83690; 85025; 96365; 96375; 96376; 99283; 99284; A9270; J1170; 81001; 87086